=== PATIENT | female | born 1990 | race Two or more races ===

== ENCOUNTER 2017-01-24 18:05 | Emergency (ER) | payer MEDICAID ==
[~2017-01-24] VITALS: Ht 175.3 cm; Wt 117.9 kg
[~2017-01-24 18:05] MED LIST: PRENTAB28 PO
[2017-01-24 20:09] LABS: Basophils # (auto) 0 uL; Basophils % (auto) 0.3 % (0.0-2.0); Eosinophils # (auto) 0.1 uL; Eosinophils % (auto) 0.7 % (0.0-7.0); Hemoglobin 10.3 g/dL (12.2-16.2); Lymphocytes # (auto) 1.4 uL; Lymphocytes % (auto) 9.9 % (10.0-50.0); Mean Corpuscular Hemoglobin 27.5 pg (28.0-32.0); Mean Corpuscular Hgb Conc. 33.2 g/dL (32.0-36.0); Monocytes # (auto) 0.8 uL; Monocytes % (auto) 5.6 % (0.0-12.0); Neutrophils # (auto) 11.6 uL; Neutrophils % (auto) 83.5 % (37.0-80.0); Platelet Count (auto) 473 10^3/uL (140-450); White Blood Cell 13.9 10^3/uL (4.4-10.8)
[2017-01-24 20:44] LABS: Albumin 3.2 g/dL (3.4-5.0); BUN/Creatinine Ratio 14.5; Bilirubin, Total 0.7 mg/dL (0.2-1.0); Calcium 8.6 mg/dL (8.5-10.1); Potassium 3.4 mmol/L (3.5-5.1); Total Protein 6.9 g/dL (6.4-8.2)
[2017-01-24] MEDS ORDERED: HYDROmorphone HCL 2 MG/ML VL IV ONE (23:45)
[2017-01-24] MEDS ORDERED: SODIUM CHLORIDE 0.9% 1,000 ML IV ONE (23:45)
[2017-01-24] MEDS ORDERED: ONDANSETRON HCL 4 MG/2 ML VIAL IV ONE (23:45)
[2017-01-25] MEDS ORDERED: METHYLERGONOVINE MALEATE 0.2 MG/ML AMP IM ONE (01:30)
[2017-01-25] MEDS ORDERED: HYDROmorphone HCL 2 MG/ML VL IV ONE ×2 (01:30→04:00)
[2017-01-25] MEDS ORDERED: cefTRIAXone 1GM/50ML D5W 50 ML IV ONE (02:30)
[2017-01-25] MEDS ORDERED: methylPREDNISolone SOD SUCC 125 MG/2 ML VL IV ONE (05:15)
[2017-01-25] MEDS ORDERED: diphenhdrAMINE HCL 50 MG/1 ML VL IV ONE (05:15)
[2017-01-25 05:42] VITALS: BP 114/64
== END 2017-01-25 06:46 | disposition home or self-care (01) ==
LOC: ER 18:18
DX: N71.9 Inflammatory disease of uterus, unspecified (principal); R10.30 Lower abdominal pain, unspecified; R10.9 Unspecified abdominal pain; Z39.2 Encounter for routine postpartum follow-up
CPT/HCPCS: 36415; 74176; 80053; 83605; 84702; 85025; 86850; 86870; 86900; 86901; 87040; 96361; 96365; 96372; 96375; 96376; 99285; J0696; J1170; J1200; J2210; J2405; J2930; J7030

== ENCOUNTER 2017-12-09 19:57 | Emergency (ER) | payer SELFPAY ==
[~2017-12-09] VITALS: Ht 177.8 cm; Wt 113.9 kg
[2017-12-09 21:04] LABS: Urine Bacteria NONE SEEN /hpf (None Seen); Urine Blood Negative /uL (Negative); Urine Specific Gravity 1.003 (1.001-1.035); Urine WBC <1 /hpf (0 - 5)
[2017-12-10] MEDS ORDERED: HYDROcodone-ACET 7.5/325MG TAB PO ONE (02:30)
[2017-12-10 02:44] LABS: Basophils # (auto) 0 uL; Basophils % (auto) 0.5 % (0.0-2.0); Eosinophils # (auto) 0.4 uL; Lymphocytes # (auto) 2.5 uL
[2017-12-10 02:46] LABS: Eosinophils % (auto) 4.8 % (0.0-7.0); Hematocrit 33.4 % (36.0-46.0); Hemoglobin 11.3 g/dL (12.2-16.2); Lymphocytes % (auto) 27.7 % (10.0-50.0); Mean Corpuscular Hemoglobin 26.9 pg (28.0-32.0); Mean Corpuscular Hgb Conc. 33.8 g/dL (32.0-36.0); Mean Corpuscular Volume 79.6 fL (80.0-100.0); Monocytes # (auto) 0.5 uL; Monocytes % (auto) 5.4 % (0.0-12.0); Neutrophils # (auto) 5.7 uL; Neutrophils % (auto) 61.6 % (37.0-80.0); Platelet Count (auto) 385 10^3/uL (140-450); Red Cell Distribution Width 16.6 % (11.8-14.3); White Blood Cell 9.2 10^3/uL (4.4-10.8)
[2017-12-10 02:59] LABS: INR 0.99 (0.9-1.15); Partial Thromboplastin Time 30.4 sec (22.64-33.71); Prothrombin Time 10.8 sec (9.37-12.3)
[2017-12-10 03:09] LABS: Albumin 3.6 g/dL (3.4-5.0); BUN/Creatinine Ratio 18.2; Calcium 8.4 mg/dL (8.5-10.1)
[2017-12-10 03:12] LABS: Bilirubin, Total 0.4 mg/dL (0.2-1.0); Potassium 2.7 mmol/L (3.5-5.1); Total Protein 7.4 g/dL (6.4-8.2)
[2017-12-10 03:30] VITALS: BP 110/63
[2017-12-10] MEDS ORDERED: POTASSIUM CHL 10% (20 MEQ/15ML) 15ml ORAL SOLN GT ONE (04:45)
[2017-12-10] MEDS ORDERED: KETOROLAC TROMETH 60MG/2ML VIAL IM ONE (05:00)
== END 2017-12-10 04:46 | disposition home or self-care (01) ==
LOC: ER 19:57
DX: S86.911A Strain of unspecified muscle(s) and tendon(s) at lower leg level, right leg, initial encounter (principal); E87.6 Hypokalemia; W19.XXXA Unspecified fall, initial encounter; Y93.89 Activity, other specified; Y99.8 Other external cause status; Y92.89 Other specified places as the place of occurrence of the external cause
CPT/HCPCS: 36415; 73560; 73590; 80053; 81001; 81025; 85025; 85610; 85730; 93971; 96372; 99285; J1885

== ENCOUNTER 2018-02-20 16:43 | Emergency (ER) | payer SELFPAY ==
[~2018-02-20] VITALS: Ht 177.8 cm; Wt 113.4 kg
[2018-02-20 17:07] VITALS: BP 120/70
[2018-02-20] MEDS ORDERED: KETOROLAC TROMETH 60MG/2ML VIAL IM ONE (17:30)
== END 2018-02-20 18:12 | disposition home or self-care (01) ==
LOC: ER 16:46
DX: S01.03XA Puncture wound without foreign body of scalp, initial encounter (principal); Z79.899 Other long term (current) drug therapy; W22.8XXA Striking against or struck by other objects, initial encounter; Y93.89 Activity, other specified; Y92.89 Other specified places as the place of occurrence of the external cause; Y99.8 Other external cause status
CPT/HCPCS: 70450; 96372; 99284; J1885

== ENCOUNTER 2018-03-24 18:21 | Emergency (ER) | payer SELFPAY ==
[~2018-03-24] VITALS: Ht 177.8 cm; Wt 111.1 kg
[2018-03-24 18:36] VITALS: BP 127/71
== END 2018-03-24 20:22 | disposition home or self-care (01) ==
LOC: ER 18:21
DX: F41.9 Anxiety disorder, unspecified (principal)

== ENCOUNTER 2018-04-23 12:44 | Emergency (ER) | payer SELFPAY ==
[~2018-04-23] VITALS: Ht 177.8 cm; Wt 110.7 kg
[2018-04-23 12:50] VITALS: BP 149/79
[2018-04-23] MEDS ORDERED: KETOROLAC TROMETH 60MG/2ML VIAL IM ONE (14:45)
[2018-04-23] MEDS ORDERED: traMADol HCL 50 MG TAB PO ONE (15:00)
== END 2018-04-23 15:03 | disposition home or self-care (01) ==
LOC: ER 12:44
DX: K04.7 Periapical abscess without sinus (principal); Z90.49 Acquired absence of other specified parts of digestive tract
CPT/HCPCS: 99283; J1885

== ENCOUNTER 2018-05-12 15:56 | Emergency (ER) | payer SELFPAY ==
[~2018-05-12] VITALS: Ht 177.8 cm; Wt 114.3 kg
[2018-05-12 16:22] VITALS: BP 125/83
== END 2018-05-12 20:47 | disposition left against medical advice (07) ==
LOC: ER 16:02
DX: K08.89 Other specified disorders of teeth and supporting structures (principal); K02.9 Dental caries, unspecified; Z53.21 Procedure and treatment not carried out due to patient leaving prior to being seen by health care provider